=== PATIENT | male | born 1995 | race Two or more races ===

== ENCOUNTER 2020-07-22 17:20 | Emergency (ER) | payer OTHER ==
[2020-07-22 17:34] VITALS: BP 117/78; PULSE 83; TEMP 98.5; BMI 31.4
[2020-07-22 20:46] LABS: BASO % 1.2 % (0-2.0); EOS % 6.4 % (0-4.5); HEMATOCRIT 42.7 % (35.4-49); HEMOGLOBIN 14.6 GM/dL (11.7-16.9); LYMPH % 29.5 % (8-40); MCH 30.9 pg (25.7-33.7); MCHC 34.3 g/dl (32.0-35.9); MEAN CELL VOLUME 90.3 fl (80-96); MEAN PLT VOLUME 8.5 fl (7.5-11.1); MONO % 9.6 % (3.8-10.2); NEUT % 53.3 % (42.8-82.8); PLATELET COUNT 208 K/MM3 (134-434); RBC 4.73 M/mm3 (4.00-5.60); RDW 12.7 % (11.9-15.9); WHITE BLOOD COUNT 8.2 K/mm3 (4.0-10.0)
[2020-07-22 21:13] LABS: ALBUMIN 4.1 g/dl (3.4-5.0); CALCIUM 8.5 mg/dL (8.5-10.1)
[2020-07-22 21:14] LABS: BLOOD UREA NITROGEN 17.3 mg/dL (7-18)
[2020-07-22 21:18] LABS: BILIRUBIN,TOTAL 0.4 mg/dL (0.2-1); CREATININE 1.2 mg/dL (0.55-1.3); TOT PROT 7.3 g/dl (6.4-8.2)
== END 2020-07-22 21:38 | disposition home or self-care (01) ==
LOC: JER 17:20
DX: R19.5 Other fecal abnormalities (principal)
CPT/HCPCS: 36415; 80053; 82272; 85025; 99283-25